=== PATIENT | male | born 1980 | race Hispanic/Latino ===

== ENCOUNTER 2022-08-16 06:39 | Day surgery (SDC) | payer OTHER ==
[2022-08-14 10:34] VITALS: BMI 43.0
[2022-08-16] MEDS ORDERED: Midazolam HCl 2 mg/2 ml Vial ONE (08:22)
[2022-08-16] MEDS ORDERED: fentaNYL PF 100 MCG/2 ML SYRINGE ONE (08:34)
[2022-08-16] MEDS ORDERED: Ketamine 50 MG/ML (10ML VIAL) ONE (08:34)
[2022-08-16] MEDS ORDERED: SUGAMMADEX SODIUM 200 MG/2 ML VIAL ONE (08:35)
[2022-08-16] MEDS ORDERED: PHENYLEPHRINE-NS 100 MCG/ML 10 ML SYRINGE ONE (08:44)
[2022-08-16] MEDS ORDERED: Succinylcholine Chloride 200 MG/10 ML VIAL ONE (08:44)
[2022-08-16] MEDS ORDERED: Ondansetron PF 4 MG/2 ML Vial ONE (08:44)
[2022-08-16] MEDS ORDERED: PROPOFOL 200 MG/20 ML VIAL ONE (08:44)
[2022-08-16] MEDS ORDERED: Dexamethasone 20 MG/5 ML VIAL ONE (08:44)
[2022-08-16] MEDS ORDERED: FENTANYL 50 MCG/ML 1 ML VIAL ONE ×2 (09:42→09:46)
[2022-08-16] MEDS ORDERED: Hydrocodone-Acetamin 15 ML UDCUP ONE (10:53)
== END 2022-08-16 11:34 | disposition home or self-care (01) ==
LOC: SDC 06:39
PROVIDERS: ATTEND Specialist
PROC: 0CTPXZZ Resection of Tonsils, External Approach (ICD-10-PCS; principal; 2022-08-16)
DX: J03.91 Acute recurrent tonsillitis, unspecified (principal); J35.01 Chronic tonsillitis; G47.33 Obstructive sleep apnea (adult) (pediatric); I10 Essential (primary) hypertension; Z86.16 Personal history of COVID-19; Z79.899 Other long term (current) drug therapy
CPT/HCPCS: 88304; 93005; 93010; J0330; J1100; J2250; J2405; J2704; J3010